=== PATIENT | female | born 1990 | race Two or more races ===

== ENCOUNTER 2020-12-03 06:05 | Inpatient (IN) | payer OTHER ==
[~2020-12-03] VITALS: Ht 170.2 cm; Wt 83.0 kg
[2020-12-03] MEDS ORDERED: LEVOTHYROXINE25 MCG PO (06:43)
[2020-12-03] MEDS ORDERED: PRENATAL TABLE1 EAC1 PO (06:44)
[2020-12-05] MEDS ORDERED: DOCUSATE SODIU100 MG PO (08:16)
== END 2020-12-05 13:13 | disposition home or self-care (01) | DRG 768 ==
LOC: LDR 06:05 → SURG-SUITE 17:21
PROVIDERS: ADMIT Obstetrics & Gynecology; ATTEND Obstetrics & Gynecology
PROC: 10E0XZZ Delivery of Products of Conception, External Approach (ICD-10-PCS; principal; 2020-12-03)
PROC: 0DQR0ZZ Repair Anal Sphincter, Open Approach (ICD-10-PCS; 2020-12-03)
PROC: 0W8NXZZ Division of Female Perineum, External Approach (ICD-10-PCS; 2020-12-03)
PROC: 10907ZC Drainage of Amniotic Fluid, Therapeutic from Products of Conception, Via Natural or Artificial Opening (ICD-10-PCS; 2020-12-03)
PROC: 3E033VJ Introduction of Other Hormone into Peripheral Vein, Percutaneous Approach (ICD-10-PCS; 2020-12-03)
PROC: 4A1HXFZ Monitoring of Products of Conception, Cardiac Rhythm, External Approach (ICD-10-PCS; 2020-12-03)
DX: O41.03X0 Oligohydramnios, third trimester, not applicable or unspecified (principal); Z37.0 Single live birth; O70.22 Third degree perineal laceration during delivery, IIIb; Z3A.38 38 weeks gestation of pregnancy; Z20.822 Contact with and (suspected) exposure to COVID-19